=== PATIENT | female | born 1945 | race Caucasian/White ===

== ENCOUNTER 2018-01-06 11:56 | Inpatient (IN) | payer OTHER ==
[~2018-01-06] VITALS: Ht 165.1 cm; Wt 103.0 kg
--- NOTE | 2018-01-06 12:13 | ED GENERAL ADULT ---
History of Present Illness General Chief Complaint: General Adult Stated Complaint: UNABLE TO MOVE LEGS Source: patient, family Exam Limitations: no limitations Vital Signs & Intake/Output Vital Signs & Intake/Output Vital Signs Date Time Temp Pulse Resp B/P B/P Pulse O2 O2 Flow FiO2 Mean Ox Delivery Rate 01/06 1534 97.9 68 20 130/70 94 Nasal 1.0L Cannula 01/06 1330 97.5 59 18 96/54 97 Nasal 1.0L Cannula 01/06 1219 95 Nasal 1.0L Cannula 01/06 1219 95 Nasal 1.0L Cannula 01/06 1216 54 90/52 92 Room Air 01/06 1211 97.5 94 Room Air 01/06 1203 56 18 62/00 Allergies Coded Allergies: Sulfa (Sulfonamide Antibiotics) (UNKNOWN 01/06/18) acetaminophen (From PERCOCET) (UNKNOWN 01/06/18) oxycodone (From PERCOCET) (UNKNOWN 01/06/18) Triage Note: 72 YO FEMALE TO ER BY DAUGHTER FOR EVAL OF SUDDEN ONSET OF NOT BEING ABLE TO BEAR ANY WEIGHT ON BILATERAL LEGS. PT HX OF BACK SURGERY 6 WEEKS AGO. PT UNABLE TO GE TOUT OF CAR IN ER PARKING LOT, PT ASSISTED OUT OF CAR BY MULTIPLE STAFF MEMEBRS. PT C/O NAUSEA. DENIES ANY PAIN. MD TO ER ROOM 12 VIA STRETCHER. BP 62/00 AT THIS TIME, BS 225. PT DIAPHORETIC. Triage Nurses Notes Reviewed? yes Onset: Abrupt Duration: continues in ED Timing: single episode today Severity: severe Associated Symptoms: diaphoresis, weakness HPI: Mrs. Myers is a 72 year old female with a history of lumbar fusion 6 weeks ago came in following an abrupt episode of severe bilateral lower extremity weakness preventing her from ambulation, furthermore she was unable to move her back and bilateral lower extremities. Patient was at a hairdresser's appointment during the onset of symptoms. Patient admits to lightheadedness, nausea, weakness, and diaphoresis. Patient denies pain and vomitng. Patient's daughter endorses that the patient was brought to the ED last week for nausea, vomiting and diarrhea, however these episodes have subsided since. On physical examination, there were absent patellar and achilles reflexes, although patient has had bilateral knee replacement surgery, possibly contributing to the absence of reflexes. There was loss of sensation bilaterally on her feet and decreased sensation on her chins bilaterally. Upon rectal examination rectal tone was noted to be slightly decreased but present. Past History Travel History Traveled to [place] past 21 day No Medical History Any Pertinent Medical History? 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 No Review of Systems Review of Systems Constitutional: Reports: diaphoresis, weakness. EENTM: Reports: no symptoms. Respiratory: Reports: no symptoms. Cardiovascular: Reports: no symptoms. GI: Reports: nausea. Denies: vomiting. Genitourinary: Reports: no symptoms. Musculoskeletal: Denies: back pain. Skin: Reports: no symptoms. Neurological/Psychological: Reports: numbness, weakness. Hematologic/Endocrine: Reports: no symptoms. Immunologic/Allergic: Reports: no symptoms. All Other Systems: Reviewed and Negative Physical Exam Physical Exam General Appearance: well developed/nourished, alert, awake, anxious, severe distress Head: atraumatic, normal appearance Eyes: Bilateral: PERRL, EOMI. Ears, Nose, Throat: normal pharynx, normal ENT inspection Neck: normal inspection, supple Respiratory: normal breath sounds, chest non-tender, no respiratory distress, lungs clear Cardiovascular: normal peripheral pulses, bradycardia Gastrointestinal: normal bowel sounds, soft, non-tender, no organomegaly Rectal: decreased tone, DECREASED TONE BUT NORMAL SENSATION AND TONE IS PRESENT Back: surgical incision intact Neurologic/Psych: awake, motor weakness, motor/sensory deficits, downgoing babinski Reflexes: 0: knee (R), knee (L), ankle (R), ankle (L). Skin: intact Core Measures ACS in differential dx? Yes CVA/TIA Diagnosis: No Sepsis Present: No Sepsis Focused Exam Completed? No Progress Differential Diagnoses I considered the following diagnoses in my evaluation of the patient: [Cauda equina syndrome, postop complication, electrolyte abnormality, AMI, sepsis] Plan of Care: Orders Procedure Date/time Status Heart Healthy Diet 01/06 D Active Pathway - chart 01/06 1548 Active House Staff 01/06 1548 Active Patient Data 01/06 1548 Active Code Status 01/06 1548 Active Patient Data 01/06 1530 Active LACTIC ACID 01/06 1513 Active ED Holding Orders 01/06 1512 Active Admit to inpatient 01/06 1512 Active Vital Signs 01/06 1512 Active Code Status 01/06 1512 Complete FingerStick- Glucose 01/06 1451 Active Intake & Output 01/06 1450 Active Telemetry/Mail Processing Machine Operator 01/06 1230 Active BLOOD CULTURE 01/06 1213 Active TROPONIN LEVEL 01/06 1213 Complete LACTIC ACID 01/06 1213 Complete COMPREHENSIVE METABOLIC PANEL 01/06 1213 Complete CBC WITHOUT DIFFERENTIAL 01/06 1213 Complete EKG 01/06 1159 Active VTE Mechanical Prophylaxis 01/06 UNK Active Telemetry/Mail Processing Machine Operator 01/06 UNK Active Laboratory Tests 01/06/18 1535: Lactic Acid Pending 01/06/18 1210: Anion Gap 9, Estimated GFR > 60, BUN/Creatinine Ratio 12.9, Glucose 195 H, Lactic Acid 2.6 H, Calcium 9.2, Total Bilirubin 0.7, AST 49 H, ALT 53 H, Alkaline Phosphatase 56, Troponin I < 0.01, Total Protein 6.3, Albumin 3.7, Globulin 2.6, Albumin/Globulin Ratio 1.4, CBC w Diff NO MAN DIFF REQ, RBC 3.93 L, MCV 92.0, MCH 30.1, MCHC 32.7 L, RDW 14.7 H, MPV 8.4, Gran % 68.8, Lymphocytes % 19.2 L, Monocytes % 8.1, Eosinophils % 3.5, Basophils % 0.4, Absolute Granulocytes 5.2, Absolute Lymphocytes 1.5, Absolute Monocytes 0.6, Absolute Eosinophils 0.3, Absolute Basophils 0 Microbiology 01/06 1535 BLOOD: Blood Culture - RECD 01/06 1220 BLOOD: Blood Culture - RECD Diagnostic Imaging: Viewed by Me: Radiology Read. Discussed w/RAD: Radiology Read. Initial ED EKG: sINUS BRADYCARDIA Rhythm Strip: sinus bradycardia Comments: No evidence of sepsis. Patient is currently awake alert and oriented, her blood pressure has normalized her heart rate is increased. Patient does not remember getting to the hairdresser's were coming here. Most likely this was a prolonged vasovagal episode. Patient will require admission to the hospital for telemetry monitoring and cardiology consultation. Departure Departure Disposition: STILL A PATIENT Condition: Fair Clinical Impression Primary Impression: Hypotension Secondary Impressions: Bradycardia Referrals: Adrianne Alfaro MD Departure Forms: Customer Survey General Discharge Information Admission Note Spoke With: Natty Lechuga MD Documentation of Exam: Documentation of any treatments & extenuating circumstances including Concerns Regarding Discharge (functional status, medication knowledge or non-compliance, living conditions, etc.) that warrant an admission rather than observation: [PT WAS HYPOTENSIVE AND BREADYCARDIA, SHE IS RESPONDING TO IV FLUIDS, WILL REQUIRE ADMISSION TO TELE, SERIAL ENZYMES, TELE MONITORING, CARDIOLOGY CONSULTATION, PT IS AT HIGH RISK IF SHE WERE TO BE DISCHARGED EARLY.] Critical Care Note Critical Care Note Critical Care Time: mins: (90 MIN)
[2018-01-06 12:36] LABS: ABSOLUTE BASOPHIL COUNT 0 /CUMM (0.0-0.2); ABSOLUTE EOSINOPHIL COUNT 0.3 /CUMM (0.0-0.7); ABSOLUTE GRANULOCYTE CT 5.2 /CUMM (1.4-6.5); ABSOLUTE LYMPH COUNT 1.5 /CUMM (1.2-3.4); ABSOLUTE MONOCYTE COUNT 0.6 /CUMM (0.10-0.60); BASOPHIL % 0.4 % (0.0-2.0); EOSINOPHIL % 3.5 % (0-5); GRANULOCYTE % 68.8 % (42.2-75.2); HEMATOCRIT 36.2 % (37-47); MEAN CORPUSCULAR HGB 30.1 PG (27.0-31.0); MEAN CORPUSCULAR HGB CONC 32.7 G/DL (33.0-37.0); MEAN PLATELET VOLUME 8.4 FL (7.4-10.4); PLATELET COUNT 310 /CUMM (130-400); RBC DISTRIBUTION WIDTH 14.7 % (11.5-14.5); RED BLOOD CELL CT 3.93 /CUMM (4.20-5.40); WHITE BLOOD CELL COUNT 7.6 /CUMM (4.8-10.8)
--- NOTE | 2018-01-06 14:15 | RADIOLOGY REPORT ---
EXAMINATION: XR PORTABLE CHEST CLINICAL INFORMATION: Pneumonia, shortness of breath. COMPARISON: None. TECHNIQUE: Portable frontal view of the chest was obtained. FINDINGS: The lungs are significantly hypoinflated and the patient is lordotic which limits evaluation. No definite focal consolidation, pleural effusion or pneumothorax. Heart size is likely within normal limits but accentuated by technique and positioning. Right shoulder arthroplasty. Anterior cervical fusion hardware. Degenerative changes of the left shoulder and acromioclavicular joint. IMPRESSION: Limited evaluation does not demonstrate an acute pulmonary process.
--- NOTE | 2018-01-06 15:51 | History & Physical ---
General Information and HPI MD Statement: I have seen and personally examined NANCY MCNAIR and documented this H&P. The patient is a 72 year old F who presented with a patient stated chief complaint of [WEAKNESS IN LEGS]. Source of Information: patient, family, old records Allergies/Medications Allergies: Coded Allergies: Sulfa (Sulfonamide Antibiotics) (UNKNOWN 01/06/18) oxycodone (From PERCOCET) (UNKNOWN 01/06/18) Home Med list Dicyclomine HCl 10 MG CAPSULE 1 CAP PO AC ABD CRAMPS (Reported) Gabapentin 100 MG CAPSULE 3 CAP PO TID UNKNOWN (Reported) Irbesartan 150 MG TABLET 1 TAB PO DAILY BP (Reported) Labetalol HCl 200 MG TABLET 1 TAB PO BID BP (Reported) Levothyroxine Sodium 112 MCG TABLET 1 TAB PO DAILY THYROID (Reported) Potassium Chloride 10 MEQ TABLET.ER 1 TAB PO DAILY SUPPLEMENT (Reported) Pravastatin Sodium 40 MG TABLET 1 TAB PO DAILY CHOLESTEROL (Reported) Tizanidine HCl 4 MG TABLET 1 TAB PO BID MUSCLE SPASMS (Reported) Triamterene/Hydrochlorothiazid (Triamterene-Hctz 37.5-25 MG Cp) 37.5 MG-25 MG CAPSULE 1 CAP PO DAILY DIURETIC/BP (Reported) Past History Travel History Traveled to [place] past 21 day No Medical History Neurological: NONE EENT: NONE Cardiovascular: hypertension Respiratory: NONE Gastrointestinal: NONE Hepatic: NONE Renal: NONE Musculoskeletal: NONE Psychiatric: NONE Endocrine: NONE Blood Disorders: NONE Cancer(s): 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 Surgical History Surgical History: spinal fusion Past Family/Social History Psychosocial History ETOH Use: denies use Illicit Drug Use: denies illicit drug use Exam & Diagnostic Data Last 24 Hrs of Vital Signs/I&O Vital Signs Date Time Temp Pulse Resp B/P B/P Pulse O2 O2 Flow FiO2 Mean Ox Delivery Rate 01/06 1534 97.9 68 20 130/70 94 Nasal 1.0L Cannula 01/06 1330 97.5 59 18 96/54 97 Nasal 1.0L Cannula 01/06 1219 95 Nasal 1.0L Cannula 01/06 1219 95 Nasal 1.0L Cannula 01/06 1216 54 90/52 92 Room Air 01/06 1211 97.5 94 Room Air 01/06 1203 56 18 62/00 Intake & Output 01/06 1600 01/06 0800 01/06 0000 Intake Total 1000 Output Total Balance 1000 Intake, IV 1000 Last 24 Hrs of Labs/Valerio: Laboratory Tests 01/06/18 1535: Lactic Acid Pending 01/06/18 1210: Anion Gap 9, Estimated GFR > 60, BUN/Creatinine Ratio 12.9, Glucose 195 H, Lactic Acid 2.6 H, Calcium 9.2, Total Bilirubin 0.7, AST 49 H, ALT 53 H, Alkaline Phosphatase 56, Troponin I < 0.01, Total Protein 6.3, Albumin 3.7, Globulin 2.6, Albumin/Globulin Ratio 1.4, CBC w Diff NO MAN DIFF REQ, RBC 3.93 L, MCV 92.0, MCH 30.1, MCHC 32.7 L, RDW 14.7 H, MPV 8.4, Gran % 68.8, Lymphocytes % 19.2 L, Monocytes % 8.1, Eosinophils % 3.5, Basophils % 0.4, Absolute Granulocytes 5.2, Absolute Lymphocytes 1.5, Absolute Monocytes 0.6, Absolute Eosinophils 0.3, Absolute Basophils 0 Microbiology 01/06 1535 BLOOD: Blood Culture - RECD 01/06 1220 BLOOD: Blood Culture - RECD Core Measures/Misc (02/02) Acute Coronary Syndrome ACS Diagnosis: No Congestive Heart Failure Congestive Heart Failure Diagnosis No Cerebrovascular Accident CVA/TIA Diagnosis: No VTE (View Protocol) VTE Risk Factors Age>40 No Mechanical VTE Prophylaxis d/t N/A MechProphylax Ordered No VTE Pharm Prophylaxis d/t NA PharmProphylax ordered Sepsis (View protocol) Sepsis Present: No If YES complete Sepsis Event Note If YES complete Sepsis Event Note
[2018-01-06] MEDS ORDERED: IRBESARTAN150 M1 PO (16:24)
[2018-01-06] MEDS ORDERED: PRAVASTATIN SOD40 M2 PO (16:24)
[2018-01-06] MEDS ORDERED: TRIAMTERENE-HC1 EAC3 PO (16:24)
[2018-01-06] MEDS ORDERED: LEVOTHYROXINE112 MCG PO (16:25)
[2018-01-06] MEDS ORDERED: POTASSIUM CHLO10 ME4 PO (16:25)
[2018-01-06] MEDS ORDERED: LABETALOL HCL200 M1 PO (16:25)
[2018-01-06] MEDS ORDERED: TIZANIDINE HCL4 M1 PO (16:25)
[2018-01-06] MEDS ORDERED: DICYCLOMINE HCL10 M1 PO (16:26)
[2018-01-06] MEDS ORDERED: GABAPENTIN100 M2 PO (16:27)
--- NOTE | 2018-01-06 17:24 | History & Physical ---
GriffinLouisaazael 01/06/18 7880: General Information and HPI MD Statement: I have seen and personally examined NANCY MYERS and documented this H&P. The patient is a 72 year old F who presented with a patient stated chief complaint of [bilateral LE Weakness]. Source of Information: patient, family Exam Limitations: no limitations History of Present Illness: Ms. Myers is a 72-year-old female with a past medical history of hypertension, hyperlipidemia, hypothyroidism, rheumatoid arthritis, and ankylosing spondylitis who is presenting to the emergency department with complaints of diarrhea, nausea and vomiting since December 17, along with sudden worsening of her lower extremity strength this morning. Patient has been experiencing L. leg pain since undergoing L. hip replacement in [place] around January 2017. After moving to [place] in August 2017 to be closer with her family after her , she went to see Dr. Turcios in [place] for left hip pain, who did an X-ray and MRI and stated "the hip is solid" according to the patient. Ms. Myers then saw Dr. Arzola who determined that the pain was originating from the back, and referred patient to a specialiest. Patient was scheduled for an MRI in October 2017, but she had suffered a fall due to weakness in lower extremities, she went into [facility] which showed a buldging disk, patient underwent lumbar surgery in October 2017, followed by rehab for approx 1 month. Prior to the surgery the patient back pain was 9/10, after it was 4/10. Patient intially began to experience diarrhea, vomiting, nausea, along with passing clots per rectum which started around December 17, shorlty after completing rehab. Patient had went to [facility], where she had a CT scan of the abdomen which showed possible colities, her stool samples/cultures were neagtive, and patient was given 3 days of ABx. Patient denies sick contact, or other sick patients at the rehab, denies ingesting uncooked seafood or chicken before the onset of diarrhea, only pet she has is a dog. Denies recent travel and does not recall tick bites. Patient states her diarrhea has not resolved, is having abour 7-8 episodes of watery BM per day which contain mucus, accompanied by lower abdominal pain, she has been vomiting approx 3-4 times per day. The diarrhea nor the vomitus contain blood. Patient also endorses decreased appetite, and weakness in her legs bilaterally which brought her into the hospital. After drinking some pedialyte yesterday, patient was feeling better. This morning patient was walking down the stairs and got into her daughters car as they were going to a hair salon. Patient states she remembers being at the gas station across the street from the salon, and then remembers having difficulty trying to get out of the car. She does not remember coming to the hospital, and daughter required helped getting patient out of the car, as the patient couldnt feel her legs. In the ED, patient became dizzy when asking the patient to sit up right while auscultating her lungs. Vital signs-temperature 97.5, pulse 56, respiratory rate 18, blood pressure 62/ 00 at the time of admission which increased to 130/70, SPO2 94% on room air. Blood workup-hemoglobin 11.8, hematocrit 36.2, platelet count 310, granulocyte 68.8, monocyte 8.1, serum sodium 138, potassium 4.0, chloride 101, carbon DEXA 20, anion gap 9, BUN 9, creatinine 0.7, glucose 195, lactic acid 2.6, calcium 9.2, magnesium 1.5, AST/ALT 49/53, troponin less than 0.01, albumin 2.7. Allergies/Medications Allergies: Coded Allergies: Sulfa (Sulfonamide Antibiotics) (UNKNOWN 01/06/18) oxycodone (From PERCOCET) (UNKNOWN 01/06/18) Home Med list Dicyclomine HCl 10 MG CAPSULE 1 CAP PO AC ABD CRAMPS (Reported) Gabapentin 100 MG CAPSULE 3 CAP PO TID UNKNOWN (Reported) Irbesartan 150 MG TABLET 1 TAB PO DAILY BP (Reported) Labetalol HCl 200 MG TABLET 1 TAB PO BID BP (Reported) Levothyroxine Sodium 112 MCG TABLET 1 TAB PO DAILY THYROID (Reported) Potassium Chloride 10 MEQ TABLET.ER 1 TAB PO DAILY SUPPLEMENT (Reported) Pravastatin Sodium 40 MG TABLET 1 TAB PO DAILY CHOLESTEROL (Reported) Tizanidine HCl 4 MG TABLET 1 TAB PO BID MUSCLE SPASMS (Reported) Triamterene/Hydrochlorothiazid (Triamterene-Hctz 37.5-25 MG Cp) 37.5 MG-25 MG CAPSULE 1 CAP PO DAILY DIURETIC/BP (Reported) Past History Travel History Traveled to [place] past 21 day No Medical History Neurological: NONE EENT: NONE Cardiovascular: hypertension, hyperlipidemia Respiratory: NONE Gastrointestinal: NONE Hepatic: NONE Renal: NONE Musculoskeletal: rheumatoid arthritis Psychiatric: NONE Endocrine: hypothyroidism Blood Disorders: NONE Cancer(s): NONE BOTTOM BUFFER/Reproductive: NONE Other Medical Hx: Ankylosing Spondylitis Surgical History Surgical History: spinal fusion Past Family/Social History Psychosocial History Where do you live? Home Who Do You Live With? son and [id number] Services at Home: None Smoking Status: Former Smoker (approx 50 years ago) ETOH Use: denies use Illicit Drug Use: denies illicit drug use Living Will? yes Power of Lens Maker/HCP? yes (Daughter-Letha Russell) Name of POA/HCP: Letha Russell Review of Systems Review of Systems Constitutional: Reports: weakness. Denies: chills, diaphoresis, fever. EENTM: Denies: blurred vision, double vision, visual changes, hearing changes, throat pain. Cardiovascular: Denies: chest pain, palpitations, syncope. Respiratory: Denies: cough, short of breath. GI: Reports: abdominal pain, diarrhea. Genitourinary: Denies: discharge, dysuria, frequency. Musculoskeletal: Reports: back pain. Neurological/Psychological: Reports: numbness, tingling. Denies: anxiety, confusion, depressed. Exam & Diagnostic Data Last 24 Hrs of Vital Signs/I&O Vital Signs Date Time Temp Pulse Resp B/P B/P Pulse O2 O2 Flow FiO2 Mean Ox Delivery Rate 01/06 1826 98.2 66 18 130/72 97 Nasal Cannula 01/06 1715 Nasal 1.0L Cannula 01/06 1534 97.9 68 20 130/70 94 Nasal 1.0L Cannula 01/06 1330 97.5 59 18 96/54 97 Nasal 1.0L Cannula 01/06 1219 95 Nasal 1.0L Cannula 01/06 1219 95 Nasal 1.0L Cannula 01/06 1216 54 90/52 92 Room Air 01/06 1211 97.5 94 Room Air 01/06 1203 56 18 62/00 Intake & Output 01/06 1600 01/06 0800 01/06 0000 Intake Total 1000 Output Total Balance 1000 Intake, IV 1000 Physical Exam General Appearance Alert, Oriented X3, Cooperative Skin No Rashes HEENT Atraumatic, PERRLA, EOMI Neck Supple, No LAD Cardiovascular Regular Rate, Normal S1, Normal S2 Lungs Clear to Auscultation, Normal Air Movement Abdomen Normal Bowel Sounds, Soft, generalized tenderness to palpation Neurological Normal Speech, Strength at 5/5 X4 Ext, Sensation Intact, Cranial Nerves 3-12 NL Extremities No Cyanosis, No Edema, Normal Pulses Assessment/Plan Assessment: Ms. Myers is a 72-year-old female with a past medical history of hypertension, hyperlipidemia, hypothyroidism, rheumatoid arthritis, and ankylosing spondylitis who is presenting to the emergency department with complaints of diarrhea, nausea and vomiting since December 17, along with sudden worsening of her lower extremity strength this morning. Admit patient to telemetry. Problem List: 1. Hypotensive Shock 2. Diarrhea 3. LE weakness 4. History of Ankylosing Spondylitis #Hypotensive Shock: etiology- dehydration 2/2 diarrhea vs colitis vs medication induced. Patient has been expericing diarrhea for 2 weeks with decreased oral intake. She has also been on sulfasalazine which can cause diarrhea, patient was previously on Embril approx 5 years ago which was stopped due to a bone infection. Sulfasalazine is known to induce diarrhea. Patient was recently treated with ABx for colitis. Patient was hypotensive on admission SBP was 62/00 , which increased to 130/72 after 1.5L of NS in ED. Lactic acid was elevated on admission at 2.6, was trending down. Patient had inappropriate cardiac response to severe hypotension -IVF recussitation with NS @ 125mL/hr - monitor orthostatic pressure daily -hold anti-HTN medications -cardiology consult #Diarrhea: etiology unknown, patient had a recent episode of colitis which was treated with Abx, patient has been on sulfasalazine for Anykylosing spondylitis. Stool samples were negative for infectious process at [facility] -obtain records from [facility] -Stooll for Ova and parasites -C.diff - CT scan of abdomen and Pelvis -hold Sulfasalazine #Bilateral LE Weakness: Patient has history of back surgery for disk herniation. Patient stated that her weakness symptoms did improve after drinking pedialyte, thus possible etiologies are: hypotension vs electrolyte imbalance vs spinal -monitor electrolytes -increase PO intake, rehydrate patient - if patient LE extremity weakness does not improve, consider MRI of spine -PT consult #Ankylosing Spondylitis: Patient was started on Sulfasalazine approx 5 years ago and having a bone infection at the site of Embril Injection -hold sulfasalazine as medication is known to induce diarrhea -tylenol for pain Diet: Heart Healthy DVT PPx: Heparin and ALPS Code Status: Full code As Ranked By This Provider Problem List: 1. Hypotension Core Measures/Misc (02/02) Acute Coronary Syndrome ACS Diagnosis: No Congestive Heart Failure Congestive Heart Failure Diagnosis No Cerebrovascular Accident CVA/TIA Diagnosis: No VTE (View Protocol) VTE Risk Factors Age>40 No Mechanical VTE Prophylaxis d/t N/A MechProphylax Ordered No VTE Pharm Prophylaxis d/t NA PharmProphylax ordered Sepsis (View protocol) Sepsis Present: No If YES complete Sepsis Event Note If YES complete Sepsis Event Note Nancy Steele MD 01/06/18 1729: Core Measures/Misc (02/02) Acute Coronary Syndrome ACS Diagnosis: No Congestive Heart Failure Congestive Heart Failure Diagnosis No Cerebrovascular Accident CVA/TIA Diagnosis: No VTE (View Protocol) VTE Risk Factors Age>40 No Mechanical VTE Prophylaxis d/t N/A MechProphylax Ordered No VTE Pharm Prophylaxis d/t NA PharmProphylax ordered Sepsis (View protocol) Sepsis Present: No If YES complete Sepsis Event Note If YES complete Sepsis Event Note Resident Review Statement Resident Statement: examined this patient, discussed with human resource intern, agreed with human resource intern Other Findings: Patient is a 72-year-old female presented primarily with a complaint of generalized weakness and dizziness secondary to diarrhea. Past medical history-hypertension, hyperlipidemia, hypothyroidism, morbid obesity, history of recent laminectomy October 2017. Patient was relatively all right around an year ago. She had left hip replacement in January 2017 which was followed by continuous pain in the left leg. She was seen by neurologist Dr. Causey who advised for MRI of the back in October 2017 which showed prolapse vertebral disc. She had laminectomy on October. She went for rehabilitation for 10-15 days and discharged from there November 2017. Afterwards she started having continuous diarrhea. She defined as a 8-10 bowel movements in a day watery nature but denies for any blood in it. She was seen for it at the [facility] and admitted for around 3-5 days from December 17. She was diagnosed as a colitis and treated by antibiotic. Blood workup and stool workup was normal at that time. She was advised to have colonoscopy which is scheduled for January 20. She was feeling dizziness and generalized weakness since last 3-5 days. Today when she went out to have a haircut with the daughter, while in the car she felt blurring of vision, blackening in front of eyes with some weakness in the legs. She was not able to get out of the car. They brought her here for further evaluation and management. Of note she was also complaining of nausea and vomiting. She is able to tolerate the liquids but not the solids. She was also having history of ankylosing spondylitis for which he was taking sulfasalazine. She denies any recent change and medication. For ankylosing spondylitis she is following Dr. Perkins. She was given Enbrel 5 years ago but she was not able to tolerate. Personal history-she lives with her daughter, and able to do all her household activity. Denies for any smoking, alcohol, illicit drug abuse. Family history-mother had liver cancer and lung cancer. Vital signs-temperature 97.5, pulse 56, respiratory rate 18, blood pressure 62/ 00 at the time of admission which increased to 130/70, SPO2 94% on room air. Blood workup-hemoglobin 11.8, hematocrit 36.2, platelet count 310, granulocyte 68.8, monocyte 8.1, serum sodium 138, potassium 4.0, chloride 101, carbon DEXA 20, anion gap 9, BUN 9, creatinine 0.7, glucose 195, lactic acid 2.6, calcium 9.2, magnesium 1.5, AST/ALT 49/53, troponin less than 0.01, albumin 2.7. Assessment and plan - Hypotensive shock secondary to diarrhea and dehydration and lactic acidosis - possibly colitis due to infection or inflammation - Patient had a history of diarrhea since last 2 weeks and was treated for the colitis. She was given antibiotic for it. She was also on sulfasalazine but can also cause nausea vomiting diarrhea. We will hold it for a while. * IV fluids normal saline 125 cc/h. * Stool for ova and parasite, C. difficile * Urine analysis * We will follow the ua, blood cultures and urine culture * Orthostatic daily * Increase oral intake * Inj pantoprazole 40 mg IV twice daily * We will follow CT scan of abdomen and pelvis with oral and IV contrast * We will hold all antihypertensives * We will get the records from the [facility] for her admission and treatment. Relative bradycardia despite of severe hypotension - Patient was severely hypertensive and still having heart rate of 56. EKG was showing normal sinus rhythm. It can be typhoid, Brucella are due to the labetalol she was on. * We will obtain cardiology consult * We will do serial troponins and EKG to rule out any secondary demand ischemia * Echocardiogram as per telescope maintenance. History of ankylosing spondylitis- Patient was already on sulfasalazine. She had newer immunomodulators Enbrel, around 5 years ago. * We will hold sulfasalazine for a while. * If needed we can give her Tylenol as needed for the pain. CODE STATUS-full code Diet-regular diet DVT prophylaxis-ALPs/heparin Rodo Shepherd MD 01/06/18 2136: Core Measures/Misc (02/02) Sepsis (View protocol) If YES complete Sepsis Event Note If YES complete Sepsis Event Note Attending MD Review Statement Attending Statement Attending MD Statement: examined this patient, discuss w/resident/PA/FIELD COORDINATOR, agreed w/resident/PA/FIELD COORDINATOR, reviewed EMR data (avail), discussed with nursing, amended to note Attending Assessment/Plan: Patient seen and examined. I have reviewed and agree with the residents documentation. Her weakness appears to be secondary to severe volume depletion that resulted in significant hypotension. She has improved with hydration. WIll further workup her diarrhea with stool studies, CT abd/pelvs and follow up results from her prior hospitalization. She is bradycardic despitite her hypotension. Likely due to her labetalol. Will monitor overnight on telemetry and obtain an echocardiogram.
[2018-01-06 18:26] VITALS: BP 130/72
[2018-01-07 06:42] VITALS: BP 180/90
--- NOTE | 2018-01-07 07:59 | PN- Housestaff ---
GriffinSrinivasalevi 01/07/18 0759: Subjective Follow-up For: Diarrhea Subjective: Overnight patient was in normal sinus rhythm heart rate ranging between 80-94. No acute events overnight, patient states she had 10 episodes of diarrhea between 6-10PM last night, has not had episode of diarrhea since 12 AM this morning. Patient states lower extremity weakness is improving was able to transfer herself with some assistance from bed to chair this morning. Review of Systems Constitutional: Denies: chills, diaphoresis, fever. Cardiovascular: Denies: chest pain, palpitations. Respiratory: Denies: cough, short of breath. Objective Last 24 Hrs of Vital Signs/I&O Vital Signs Date Time Temp Pulse Resp B/P B/P Pulse O2 O2 Flow FiO2 Mean Ox Delivery Rate 01/07 0642 98.6 83 18 180/90 96 Nasal Cannula 01/07 0000 Nasal 1.0L Cannula 01/06 1826 98.2 66 18 130/72 97 Nasal Cannula 01/06 1715 Nasal 1.0L Cannula 01/06 1534 97.9 68 20 130/70 94 Nasal 1.0L Cannula 01/06 1330 97.5 59 18 96/54 97 Nasal 1.0L Cannula 01/06 1219 95 Nasal 1.0L Cannula 01/06 1219 95 Nasal 1.0L Cannula 01/06 1216 54 90/52 92 Room Air 01/06 1211 97.5 94 Room Air 01/06 1203 56 18 62/00 Intake & Output 01/07 1600 01/07 0800 01/07 0000 Intake Total 1420 950 Output Total 1300 Balance 120 950 Intake, IV 1200 450 Intake, Oral 220 500 Number 2 5 Bowel Movements Output, Urine 1300 Patient 218 lb Weight Weight Reported by Patient Measurement Method Physical Exam General Appearance: Alert, Oriented X3, Cooperative Skin: No Rashes HEENT: Atraumatic, PERRLA, EOMI Cardiovascular: Regular Rate, Normal S1, Normal S2, SYSTOLIC 2/6 MURMUR Lungs: Clear to Auscultation, Normal Air Movement Neurological: Strength at 5/5 X4 Ext, Normal Tone, Sensation Intact Extremities: No Cyanosis, No Edema, Normal Pulses Assessment/Plan Assessment: Ms. Myers is a 72-year-old female with a past medical history of hypertension, hyperlipidemia, hypothyroidism, rheumatoid arthritis, and ankylosing spondylitis who is presenting to the emergency department with complaints of diarrhea, nausea and vomiting since December 17, along with sudden worsening of her lower extremity strength this morning. Admit patient to telemetry. Problem List: 1. Hypotensive Shock- resolved 2. Diarrhea 3. LE weakness 4. History of Ankylosing Spondylitis 5. History of hypertension #Hypotensive Shock: etiology- dehydration 2/2 diarrhea vs colitis vs medication induced. Patient has been expericing diarrhea for 2 weeks with decreased oral intake. She has also been on sulfasalazine which can cause diarrhea, patient was previously on Embril approx 5 years ago which was stopped due to a bone infection. Sulfasalazine is known to induce diarrhea. Patient was recently treated with ABx for colitis. Patient was hypotensive on admission SBP was 62/00 , which increased to 130/72 after 1.5L of NS in ED. Lactic acid was elevated on admission at 2.6, was trending down. Patient had inappropriate cardiac response to severe hypotension -IVF recussitation with NS @ 125mL/hr - monitor orthostatic pressure daily -hold anti-HTN medications -cardiology consult #Diarrhea: etiology unknown, patient had a recent episode of colitis which was treated with Abx, patient has been on sulfasalazine for Anykylosing spondylitis. Stool samples were negative for infectious process at [facility]. CT of the abdomen and pelvis does not show any evidence of acute abnormality within the abdomen or pelvis, no focal wall thickening or pericolonic inflammatory changes to suggest colitis. -obtain records from [facility] -Follow-up stool for Ova and parasites and stool culture -hold Sulfasalazine #Bilateral LE Weakness: Patient has history of back surgery for disk herniation. Patient stated that her weakness symptoms did improve after drinking pedialyte, thus possible etiologies are: hypotension vs electrolyte imbalance vs spinal -monitor electrolytes -increase PO intake, rehydrate patient - if patient LE extremity weakness does not improve, consider MRI of spine -PT consult #Ankylosing Spondylitis: Patient was started on Sulfasalazine approx 5 years ago and having a bone infection at the site of Embril Injection -hold sulfasalazine as medication is known to induce diarrhea -tylenol for pain #History of hypertension: Initially patient was hypotensive on presentation secondary to dehydration, patient has received -Start labetalol 200 mg, why patient for bradycardiapatient had an appropriate heart rate response to dehydration, response could have been inhibited by medication. -Start losartan 50 mg #History of hypothyroidism: Repeat TSH is 4.170, TSH on admit was 5.9 Diet: Heart Healthy DVT PPx: Heparin and ALPS Code Status: Full code Problem List: 1. Hypotension Pain Ratin Pain Location: n/a Pain Goal: Remain pain free Pain Plan: tramadol Tomorrow's Labs & Rationales: tony Shepherd MD,[place] 01/07/18 1213: Attending MD Review Statement Attending Statement Attending MD Statement: examined this patient, discuss w/resident/PA/MERCHANDISING STOCK ASSOCIATE, agreed w/resident/PA/MERCHANDISING STOCK ASSOCIATE, reviewed EMR data (avail), discussed with nursing, discussed with case mgmt, amended to note Attending Assessment/Plan: Patient seen and examined. Resting comfortably not in any acute distress. She reports feeling much better this morning. She had about 9 bowel movements yesterday but so far has had only 2 bowel movements. Denies any abdominal cramping. Denies any nausea vomiting. On examination abdomen is nondistended soft and nontender. CT scan done yesterday shows no evidence of acute abnormality. No evidence suggestive of colitis. Liquid stool seen in the colon. Blood pressure has improved and is actually on the higher side today. She is also no longer bradycardic. With heart rate improving into the 80s. Clostridium difficile testing is negative. Recommendations: -Resume oral antihypertensive medications. -Discontinue IV fluids. Patient has been resumed on regular diet. -Begin patient on Imodium. Follow-up for a stool workup. -If blood pressure remained stable and diarrhea continues to improve, patient may be discharged home tomorrow and follow-up with her buttonhole tacker as an outpatient. -Discontinue telemetry monitoring. Follow-up echocardiogram
--- NOTE | 2018-01-07 08:06 | PN- Student ---
Subjective Subjective: 72 y/o female with a PMH of hypertension, hyperlipidemia, hypothyroidism, rheumatoid arthritis, and ankylosing spondylitis who is presenting to the emergency department with complaints of diarrhea, nausea and vomiting since December 17, along with sudden worsening of her lower extremity strength this morning. Overnight, the telemonitor reported the patient to be in NSR in a range from 80- 94bpm. No acute events noted. Patient was interviewed and examined at bedside this morning. The patient was A& O x3 and appropriately responsive. The patient states that she only slept for three hours which is less than normal for her and that she has pain in her right CVA that she states began once she came to the hospital. The patient also states that she still feels dizziness, especially when she has bowel movements and that her last episode of diarrhea was 11pm last night. Current Medications Sig/Kaitlyn Start time Last Medication Dose Route Stop Time Status Admin Acetaminophen 0 .STK-MED ONE 01/07 0244 DC PO Acetaminophen 650 MG ONCE ONE 01/07 0230 DC 01/07 PO 01/07 0231 0248 Acetaminophen 650 MG ONCE ONE 01/06 2030 DC 01/06 PO 01/06 Acetaminophen 0 .STK-MED ONE 01/06 2030 DC PO Heparin Sodium 5,000 UNIT Q8 01/06 2256 AC 01/07 (Porcine) SC 0535 Levothyroxine Sodium 0.112 MG DAILY AC 01/07 0700 AC 01/07 PO 0535 Magnesium Sulfate 1 GM ONCE ONE 01/06 1830 DC 01/06 Dextrose/Water 100 ML IV 01/06 2229 2120 Sodium Chloride 1,000 ML Q8H 01/06 2145 AC 01/07 IV 0006 Sodium Chloride 1,000 ML Q6H 01/06 1745 DC 01/06 IV 1824 Sodium Chloride 1,000 ML BOLUS ONE 01/06 1215 DC 01/06 IV 01/06 1314 1210 Sodium Chloride 1,000 ML BOLUS ONE 01/06 1215 DC IV 01/06 1314 Sodium Chloride 1,000 ML BOLUS ONE 01/06 1215 DC 01/06 IV 01/06 1314 1330 Allergies: Sulfa drugs Oxycodone Objective Objective: Vital Signs Date Time Temp Pulse Resp B/P B/P Pulse O2 O2 Flow FiO2 Mean Ox Delivery Rate 01/07 0642 98.6 83 18 180/90 96 Nasal Cannula 01/07 0000 Nasal 1.0L Cannula 01/06 1826 98.2 66 18 130/72 97 Nasal Cannula 01/06 1715 Nasal 1.0L Cannula 01/06 1534 97.9 68 20 130/70 94 Nasal 1.0L Cannula 01/06 1330 97.5 59 18 96/54 97 Nasal 1.0L Cannula 01/06 1219 95 Nasal 1.0L Cannula 01/06 1219 95 Nasal 1.0L Cannula 01/06 1216 54 90/52 92 Room Air 01/06 1211 97.5 94 Room Air 01/06 1203 56 18 62/00 Intake & Output 01/07 0800 01/07 0000 01/06 1600 Intake Total 1556 813 3877 Output Total 1300 Balance 191 482 3955 Intake, IV 3689 924 6179 Intake, Oral 220 500 Number 2 5 Bowel Movements Output, Urine 1300 Patient 218 lb Weight Weight Reported by Patient Measurement Method Physical Exam General Appearance: Well developed/nourished, NAD Head: Atraumatic Neck: Supple; No lymphadenopathy noted Respiratory: normal breath sounds bilaterally, chest non-tender, no respiratory distress Cardiovascular: regular rate/rhythm; no murmurs, rubs, or gallops noted Gastrointestinal: No visible distension, soft, Tender at R CVA Extremities: ROM in tact Neurologic/Psych: Alert and Oriented x 3 Results Results: Laboratory Tests 01/07/18 0615: Anion Gap 6, Estimated GFR > 60, BUN/Creatinine Ratio 10.0, Magnesium 1.8, TSH 4.170, CBC w Diff NO MAN DIFF REQ, RBC 3.42 L, MCV 92.8, MCH 30.4, MCHC 32.8 L , RDW 14.9 H, MPV 8.8, Gran % 42.2, Lymphocytes % 38.6, Monocytes % 14.7 H, Eosinophils % 3.7, Basophils % 0.8, Absolute Granulocytes 2.6, Absolute Lymphocytes 2.4, Absolute Monocytes 0.9 H, Absolute Eosinophils 0.2, Absolute Basophils 0 01/06/18 2355: Troponin I < 0.01 01/06/18 1933: Urine Color YEL, Urine Clarity CLEAR, Urine pH 6.0, Ur Specific [place] 1.015, Urine Protein NEG, Urine Ketones NEG, Urine Nitrite NEG, Urine Bilirubin NEG, Urine Urobilinogen 0.2, Ur Leukocyte Esterase MOD H, Ur Microscopic SEDIMENT EXAMINED, Urine RBC 1-3, Urine WBC 10-15 H, Ur Epithelial Cells MOD H, Urine Bacteria MOD H, Urine Hemoglobin NEG, Urine Glucose NEG 01/06/18 1915: Troponin I < 0.01 01/06/18 1535: Lactic Acid 2.4 H 01/06/18 1210: Anion Gap 9, Estimated GFR > 60, BUN/Creatinine Ratio 12.9, Glucose 195 H, Lactic Acid 2.6 H, Calcium 9.2, Magnesium 1.5 L, Total Bilirubin 0.7, AST 49 H, ALT 53 H, Alkaline Phosphatase 56, Troponin I < 0.01, Total Protein 6.3, Albumin 3.7, Globulin 2.6, Albumin/Globulin Ratio 1.4, Free T4 1.40, Total T3 1.19, TSH &T3 &Free T4 Intrp 5.920 H, CBC w Diff NO MAN DIFF REQ, RBC 3.93 L, MCV 92.0, MCH 30.1, MCHC 32.7 L, RDW 14.7 H, MPV 8.4, Gran % 68.8, Lymphocytes % 19.2 L, Monocytes % 8.1, Eosinophils % 3.5, Basophils % 0.4, Absolute Granulocytes 5.2, Absolute Lymphocytes 1.5, Absolute Monocytes 0.6, Absolute Eosinophils 0.3, Absolute Basophils 0 Microbiology 01/06 2130 STOOL: Cryptosporidium Antigen - RECD 01/06 2130 STOOL: Giardia Antigen (JAMES) - RECD 01/06 2130 STOOL: Clostridium difficile Toxin A & B - RES 01/06 2130 STOOL: Vibrio Culture - RES 01/06 2130 STOOL: Stool Culture - RES 01/06 173 STOOL: Vibrio Culture - CAN Cancelled: COMBINED 01/06 1535 BLOOD: Blood Culture - RECD 01/06 1220 BLOOD: Blood Culture - RECD Assessment/Plan Assessment: 72 y/o female with a PMH of hypertension, hyperlipidemia, hypothyroidism, rheumatoid arthritis, and ankylosing spondylitis who is presenting to the emergency department with complaints of diarrhea, nausea and vomiting since December 17. Plan: Hypotensive Shock: IVF recussitation with 1/2 NS Monitor orthostatic pressure daily Cardiology consult Diarrhea: Monitor electrolytes Increase PO intake, rehydrate patient Potassium Chloride 40mEq PO Q8 x2 days Consider MRI of spine PT consult Ankylosing Spondylitis: Hold sulfasalazine as medication is known to induce diarrhea Tylenol for pain Chronic Medical Conditions: Continue home medications Re-check TSH levels and consider changing Synthroid accordingly Diet: Heart Healthy DVT PPx: Heparin and ALPS Code Status: Full code
[2018-01-07 08:17] LABS: ABSOLUTE BASOPHIL COUNT 0 /CUMM (0.0-0.2); ABSOLUTE EOSINOPHIL COUNT 0.2 /CUMM (0.0-0.7); ABSOLUTE GRANULOCYTE CT 2.6 /CUMM (1.4-6.5); ABSOLUTE LYMPH COUNT 2.4 /CUMM (1.2-3.4); ABSOLUTE MONOCYTE COUNT 0.9 /CUMM (0.10-0.60); BASOPHIL % 0.8 % (0.0-2.0); EOSINOPHIL % 3.7 % (0-5); GRANULOCYTE % 42.2 % (42.2-75.2); HEMATOCRIT 31.8 % (37-47); MEAN CORPUSCULAR HGB 30.4 PG (27.0-31.0); MEAN CORPUSCULAR HGB CONC 32.8 G/DL (33.0-37.0); MEAN CORPUSCULAR VOLUME 92.8 FL (81.0-99.0); MEAN PLATELET VOLUME 8.8 FL (7.4-10.4); PLATELET COUNT 269 /CUMM (130-400); RBC DISTRIBUTION WIDTH 14.9 % (11.5-14.5); RED BLOOD CELL CT 3.42 /CUMM (4.20-5.40); WHITE BLOOD CELL COUNT 6.2 /CUMM (4.8-10.8)
--- NOTE | 2018-01-07 09:14 | CT SCAN REPORT ---
EXAMINATION: CT ABDOMEN AND PELVIS WITH CONTRAST CLINICAL INFORMATION: Abdominal pain. COMPARISON: None TECHNIQUE: Multidetector volumetric imaging was performed of the abdomen and pelvis following IV administration of 95 mL of Optiray 320 intravenous contrast. Sagittal and coronal reformatted images were obtained on the technologist's workstation. DLP: 1254.80 mGy-cm FINDINGS: LUNG BASES: The visualized lung bases are unremarkable. LIVER, GALLBLADDER, AND BILIARY TREE: The liver is normal in size, shape, and attenuation. No focal hepatic lesion or biliary ductal dilatation is present. Cholecystectomy. PANCREAS: Unremarkable. SPLEEN: Few scattered calcifications within the spleen, likely related to old granulomatous disease and of doubtful clinical significance. ADRENAL GLANDS: Unremarkable. KIDNEYS AND URETERS: The kidneys are normal in size, shape, and attenuation. No hydronephrosis, hydroureter, or calculi seen. No perinephric stranding. Tiny cortical hypodensity within the right kidney measuring approximately 0.5 cm is too small to characterize but statistically most likely represents a small cyst. BLADDER: Limited evaluation due to streak artifact from the left hip arthroplasty. No focal wall abnormalities detected. GASTROINTESTINAL TRACT: Diverticulosis without CT evidence of diverticulitis. Liquid stool within the colon suggestive of diarrhea. The appendix is not seen. There are no pericecal inflammatory changes to suggest acute appendicitis. No evidence of bowel obstruction. ABDOMINAL WALL: No significant hernia is appreciated. LYMPH NODES: No lymphadenopathy within the abdomen or pelvis by CT criteria. VASCULAR: Atherosclerosis abdominal aorta without evidence of aneurysm. PELVIC VISCERA: Hysterectomy. OSSEOUS STRUCTURES: Total left hip arthroplasty. Posterior spinal fusion L2-L3. Intervertebral disc spaces L2-L3, L3-L4, L4-L5, L5-S1. Abandoned screw within the S1 body. Multilevel degenerative changes of the spine. No acute or suspicious osseous abnormality. IMPRESSION: 1. No evidence of acute abnormality within the abdomen or pelvis. 2. Liquid contents within the colon suggestive of diarrhea. No focal wall thickening or pericolonic inflammatory changes to suggest colitis. 3. Other nonacute findings as above.
[2018-01-07 14:24] VITALS: BP 174/80
--- NOTE | 2018-01-07 19:09 | Cons- Cardiology ---
General Information and HPI Consulting Request Date of Consult: 01/07/18 Requested By: Joao LONGORIA,Rodo History of Present Illness: 72 year old patient with history of ankylosing spondilitis, hypertension, dyslipidemia, admitted with history of diarrhea and poor intake over a week. Ms Louis was in hypotensive shock at admission secondary to volume contraction/ diarrhea/poor intake. She was given IV fluids and her blood pressure rapidly improved. She was also noted to be in sinus bradycardia upon admission, with HR inappropriately in the 50s. Patient was lightheaded and mostly complained of lower extremity weakness, which was symmetrical. Since admission, her betablockers have been discontinued and her HR has been normal, 80-90 bpm in sinus rhythm over the past 24 hours. She is still presenting frequent loose stools, but is feeling better. She denies syncope, denies, chest pains, denies palpitations, denies orthopnea. Allergies/Medications Allergies: Coded Allergies: Sulfa (Sulfonamide Antibiotics) (UNKNOWN 01/06/18) oxycodone (From PERCOCET) (UNKNOWN 01/06/18) Home Med List: Dicyclomine HCl 10 MG CAPSULE 1 CAP PO AC ABD CRAMPS (Reported) Gabapentin 100 MG CAPSULE 3 CAP PO TID UNKNOWN (Reported) Irbesartan 150 MG TABLET 1 TAB PO DAILY BP (Reported) Labetalol HCl 200 MG TABLET 1 TAB PO BID BP (Reported) Levothyroxine Sodium 112 MCG TABLET 1 TAB PO DAILY THYROID (Reported) Potassium Chloride 10 MEQ TABLET.ER 1 TAB PO DAILY SUPPLEMENT (Reported) Pravastatin Sodium 40 MG TABLET 1 TAB PO DAILY CHOLESTEROL (Reported) Tizanidine HCl 4 MG TABLET 1 TAB PO BID MUSCLE SPASMS (Reported) Triamterene/Hydrochlorothiazid (Triamterene-Hctz 37.5-25 MG Cp) 37.5 MG-25 MG CAPSULE 1 CAP PO DAILY DIURETIC/BP (Reported) Current Medications: Current Medications Sig/Kaitlyn Start time Last Medication Dose Route Stop Time Status Admin Acetaminophen 0 .STK-MED ONE 01/074 DC PO Acetaminophen 650 MG ONCE ONE 01/07 023 DC 01/07 PO 01/07 Acetaminophen 650 MG ONCE ONE 01/06 2030 DC 01/06 PO 01/06 Acetaminophen 0 .STK-MED ONE 01/06 2030 DC PO Heparin Sodium 5,000 UNIT Q8 01/06 2256 AC 01/07 (Porcine) SC 1358 Labetalol HCl 200 MG BID 01/07 0900 AC 01/07 PO 0959 Levothyroxine Sodium 0.112 MG DAILY AC 01/07 0700 AC 01/07 PO 0535 Loperamide HCl 2 MG Q6P PRN 01/07 1415 AC PO Losartan Potassium 50 MG DAILY 01/07 0900 AC 01/07 PO 0959 Magnesium Oxide 400 MG BID 01/07 0900 AC 01/07 PO 1001 Magnesium Sulfate 1 GM ONCE ONE 01/06 1830 DC 01/06 Dextrose/Water 100 ML IV 01/06 2229 2120 Potassium Chloride 40 MEQ BID 01/07 0900 AC 01/07 PO 01/07 2101 0959 Sodium Chloride 1,000 ML Q8H 01/06 2145 DC 01/07 IV 0006 Sodium Chloride 1,000 ML Q6H 01/06 1745 DC 01/06 IV 1824 Tramadol HCl 50 MG Q4 PRN 01/07 1159 AC PO Tramadol HCl 50 MG Q6 PRN 01/07 1115 DC 01/07 PO 1122 Review of Systems Review of Systems: see HPI Past History Travel History Traveled to [place] past 21 day No Medical History Blood Transfusion Hx: No Neurological: NONE EENT: NONE Cardiovascular: hypertension, hyperlipidemia Respiratory: NONE Gastrointestinal: NONE Hepatic: NONE Renal: NONE Musculoskeletal: rheumatoid arthritis Psychiatric: NONE Endocrine: hypothyroidism Blood Disorders: NONE Cancer(s): NONE LINEN FOLDER/Reproductive: NONE Other Medical Hx: Ankylosing Spondylitis Surgical History Surgical History: spinal fusion, BILAD KNEES LEFT HIP RIGHT SHOULDER Psychosocial History Where Do You Live? Home Who Do You Live With? son and [id number] Services at Home: None Smoking Status: Former Smoker (approx 50 years ago) ETOH Use: denies use Illicit Drug Use: denies illicit drug use Living Will? yes Power of Analytical Data Miner/HCP? yes (Daughter-Letha Russell) Name of POA/HCP: Letha Russell Exam & Diagnostic Data Vital Signs and I&O Vital Signs Date Time Temp Pulse Resp B/P B/P Pulse O2 O2 Flow FiO2 Mean Ox Delivery Rate 01/07 1424 98.6 73 18 174/80 96 01/07 0959 83 180/90 01/07 0959 83 180/90 01/07 0642 98.6 83 18 180/90 96 Nasal Cannula 01/07 0000 Nasal 1.0L Cannula Intake & Output 01/07 1600 01/07 0800 01/07 0000 01/06 1600 01/06 0800 01/06 0000 Intake Total 1000 3926 606 5834 Output Total 600 1300 Balance 400 126 411 3653 Intake, IV 450 1728 553 5421 Intake, Oral 550 220 500 Number 2 2 5 Bowel Movements Output, Urine 600 1300 Patient 218 lb Weight Weight Reported by Patient Measurement Method Physical Exam: General Appearance: Alert, Oriented X3, Cooperative HEENT: Atraumatic, PERRLA, EOMI Cardiovascular: Regular Rate, Normal S1, Normal S2, 2/6 systolic ejection murmur LUSB Lungs: Clear to Auscultation, Normal Air Movement Neurological: alert, oriented, no speech impairment, Strength at 5/5 X4 Ext, Sensation Intact Extremities: good pulmonary refill bilaterally, No Edema, Normal Pulses Labs/Valerio Results: Laboratory Tests 01/07 01/06 0615 2355 Chemistry Sodium (137 - 145 mmol/L) 140 Potassium (3.5 - 5.1 mmol/L) 3.3 L Chloride (98 - 107 mmol/L) 106 Carbon Dioxide (22 - 30 mmol/L) 28 Anion Gap (5 - 16) 6 BUN (7 - 17 mg/dL) 5 L Creatinine (0.5 - 1.0 mg/dL) 0.5 Estimated GFR (>60 ml/min) > 60 BUN/Creatinine Ratio (7 - 25 %) 10.0 Magnesium (1.6 - 2.3 mg/dL) 1.8 Troponin I (< 0.11 ng/ml) < 0.01 TSH (0.270 - 4.200 uIU/mL) 4.170 Hematology CBC w Diff NO MAN DIFF REQ WBC (4.8 - 10.8 /CUMM) 6.2 RBC (4.20 - 5.40 /CUMM) 3.42 L Hgb (12.0 - 16.0 G/DL) 10.4 L Hct (37 - 47 %) 31.8 L MCV (81.0 - 99.0 FL) 92.8 MCH (27.0 - 31.0 PG) 30.4 MCHC (33.0 - 37.0 G/DL) 32.8 L RDW (11.5 - 14.5 %) 14.9 H Plt Count (130 - 400 /CUMM) 269 MPV (7.4 - 10.4 FL) 8.8 Gran % (42.2 - 75.2 %) 42.2 Lymphocytes % (20.5 - 51.1 %) 38.6 Monocytes % (1.7 - 9.3 %) 14.7 H Eosinophils % (0 - 5 %) 3.7 Basophils % (0.0 - 2.0 %) 0.8 Absolute Granulocytes (1.4 - 6.5 /CUMM) 2.6 Absolute Lymphocytes (1.2 - 3.4 /CUMM) 2.4 Absolute Monocytes (0.10 - 0.60 /CUMM) 0.9 H Absolute Eosinophils (0.0 - 0.7 /CUMM) 0.2 Absolute Basophils (0.0 - 0.2 /CUMM) 0 01/06 191 1535 Chemistry Lactic Acid (0.7 - 2.1 mmol/L) 2.4 H Troponin I (< 0.11 ng/ml) < 0.01 Urines Urine Color (YEL,AMB,STR) YEL Urine Clarity (CLEAR) CLEAR Urine pH (5.0 - 8.0) 6.0 Ur Specific [place] (1.001 - 1.035) 1.015 Urine Protein (NEG,<30 MG/DL) NEG Urine Ketones (NEG) NEG Urine Nitrite (NEG) NEG Urine Bilirubin (NEG) NEG Urine Urobilinogen (0.1 - 1.0 EU/dl) 0.2 Ur Leukocyte Esterase (NEG) MOD H Ur Microscopic SEDIMENT EXAMINED Urine RBC (0 - 5 /HPF) 1-3 Urine WBC (0 - 2 /HPF) 10-15 H Ur Epithelial Cells (NONE,FEW) MOD H Urine Bacteria (NEG/NONE) MOD H Urine Hemoglobin (NEG) NEG Urine Glucose (N MG/DL) NEG 01/06 1210 Chemistry Sodium (137 - 145 mmol/L) 138 Potassium (3.5 - 5.1 mmol/L) 4.0 Chloride (98 - 107 mmol/L) 101 Carbon Dioxide (22 - 30 mmol/L) 28 Anion Gap (5 - 16) 9 BUN (7 - 17 mg/dL) 9 Creatinine (0.5 - 1.0 mg/dL) 0.7 Estimated GFR (>60 ml/min) > 60 BUN/Creatinine Ratio (7 - 25 %) 12.9 Glucose (65 - 99 mg/dL) 195 H Lactic Acid (0.7 - 2.1 mmol/L) 2.6 H Calcium (8.4 - 10.2 mg/dL) 9.2 Magnesium (1.6 - 2.3 mg/dL) 1.5 L Total Bilirubin (0.2 - 1.3 mg/dL) 0.7 AST (14 - 36 U/L) 49 H ALT (9 - 52 U/L) 53 H Alkaline Phosphatase (<127 U/L) 56 Troponin I (< 0.11 ng/ml) < 0.01 Total Protein (6.3 - 8.2 g/dL) 6.3 Albumin (3.5 - 5.0 g/dL) 3.7 Globulin (1.9 - 4.2 gm/dL) 2.6 Albumin/Globulin Ratio (1.1 - 2.2 %) 1.4 Free T4 (0.78 - 2.44 ng/dL) 1.40 Total T3 (0.97 - 1.69 ng/mL) 1.19 TSH &T3 &Free T4 Intrp (0.270 - 4.20 uIU/mL) 5.920 H Hematology CBC w Diff NO MAN DIFF REQ WBC (4.8 - 10.8 /CUMM) 7.6 RBC (4.20 - 5.40 /CUMM) 3.93 L Hgb (12.0 - 16.0 G/DL) 11.8 L Hct (37 - 47 %) 36.2 L MCV (81.0 - 99.0 FL) 92.0 MCH (27.0 - 31.0 PG) 30.1 MCHC (33.0 - 37.0 G/DL) 32.7 L RDW (11.5 - 14.5 %) 14.7 H Plt Count (130 - 400 /CUMM) 310 MPV (7.4 - 10.4 FL) 8.4 Gran % (42.2 - 75.2 %) 68.8 Lymphocytes % (20.5 - 51.1 %) 19.2 L Monocytes % (1.7 - 9.3 %) 8.1 Eosinophils % (0 - 5 %) 3.5 Basophils % (0.0 - 2.0 %) 0.4 Absolute Granulocytes (1.4 - 6.5 /CUMM) 5.2 Absolute Lymphocytes (1.2 - 3.4 /CUMM) 1.5 Absolute Monocytes (0.10 - 0.60 /CUMM) 0.6 Absolute Eosinophils (0.0 - 0.7 /CUMM) 0.3 Absolute Basophils (0.0 - 0.2 /CUMM) 0 Assessment/Plan Assessment/Plan Sinus bradycardia in the context of continued high dose labetalol use during period of dehydration. HR has recovered since admission with discontiuation of labetalol. Hypotensive shock resolved with IV fluids, but patient still vulnerable due to continued frequent loose stools. Hold labetalol for the moment. Irbesartan could be resumed tomorrow if BP remains stable. Consult Acknowledgment - Thank you for your consult request.
[2018-01-07 21:33] VITALS: BP 178/80
[2018-01-08 05:52] VITALS: BP 158/80
[2018-01-08 08:00] VITALS: BP 178/96
--- NOTE | 2018-01-08 10:45 | Patient Discharge Instructions ---
Discharge Instructions General Discharge Information You were seen/treated for: DIARRHEA Special Instructions: Please follow upw with your PCP within a week after discharge. You have an appointment with your certified credit counselor on Jan 20, please follow up. Diet Continue normal diet: Yes Activity Full Activity/No Limits: Yes Acute Coronary Syndrome Inclusion Criteria At DC or during hospital stay patient has or had the following: ACS DIAGNOSIS No Discharge Core Measures Meds if any: Prescribed or Continued at Discharge Meds if any: NOT Prescribed or Continued at Discharge Congestive Heart Failure Inclusion Criteria At DC or during hospital stay patient has or had the following: CHF DIAGNOSIS No Discharge Core Measures Meds if any: Prescribed or Continued at Discharge Meds if any: NOT Prescribed or Continued at Discharge Cerebrovascular accident Inclusion Criteria At DC or during hospital stay patient has or had the following: CVA/TIA Diagnosis No Discharge Core Measures Meds if any: Prescribed or Continued at Discharge Meds if any: NOT Prescribed or Continued at Discharge Venous thromboembolism Inclusion Criteria VTE Diagnosis No VTE Type NONE VTE Confirmed by (Test) NONE Discharge Core Measures - Per Current guidelines, there needs to be overlap - treatment for the first 5 days of Warfarin therapy. - If discharged on Warfarin prior to 5 days of - overlap therapy, the patient will need to be - assessed for post discharge needs including - *Post discharge parental anticoagulation - *Warfarin and/or parental anticoagulation education - *Follow up date to check INR post discharge At least 5 days overlap therapy as Inpatient No Meds if any: Prescribed or Continued at Discharge Note: Overlap Therapy is Warfarin and Anticoagulant Meds if any: NOT Prescribed or Continued at Discharge
--- NOTE | 2018-01-08 10:52 | PN- Att Addend ---
Attending Addendum Attending Brief Note Patient seen and examined. Reports that she feels like a new woman. No issues overnight. Diarrhea appears to have resolved. Denies any abdominal cramping. Denies any nausea vomiting. Blood pressure has improved from her hypotensive state on admission. Vital Signs Date Time Temp Pulse Resp B/P B/P Pulse O2 O2 Flow FiO2 Mean Ox Delivery Rate 01/09 0825 77 178/96 01/08 0825 77 178/96 01/08 0800 Room Air 01/08 0800 77 178/96 01/08 0552 98.2 74 18 158/80 95 Room Air 01/07 2133 98.2 84 18 178/80 93 Room Air 01/07 2049 73 174/80 08 1424 98.6 73 18 174/80 96 Laboratory Tests 01/08/18 0640: Anion Gap 6, Estimated GFR > 60, BUN/Creatinine Ratio 8.3 General appearance: Well-developed and not in any acute distress. HEENT: Anicteric, no pallor, pupils equal and reactive. Neck: Supple with no jugular venous distention. Heart: S1-S2 regular with no audible murmur. Lungs: Adequate and symmetric air entry bilaterally with no added sounds. Abdomen: Nondistended with normal bowel sounds. Soft, nontender with no palpable masses. Extremities: No pedal edema. No cyanosis. Skin: Intact Problems: 1. Hypotensive shock; resolved 2. Diarrhea; resolved 3. Hypertension Plan: -Patient medically stable to be discharged home today. -She is to follow-up with a gastroenterology appointment for colonoscopy in the next 2 weeks. -She may continue her home antihypertensive medications including diuretic therapy. -She has mild transaminitis on presentation. Denies nausea vomiting. No tenderness on exam. CT abdomen shows no evidence of acute hepatic pathology. She is status post cholecystectomy.
[2018-01-08 11:44] VITALS: BP 160/80
--- NOTE | 2018-01-08 11:59 | Discharge Summary ---
Hospital Course Allergies: Coded Allergies: Sulfa (Sulfonamide Antibiotics) (UNKNOWN 01/06/18) oxycodone (From PERCOCET) (UNKNOWN 01/06/18) Discharge Instructions Medications at Discharge Discharge Medications: Continue taking these medications: Irbesartan (Irbesartan) 150 MG TABLET 1 Tablet ORAL DAILY Qty = 90 Comments: [place]ARTAN GIVEN INSTEAD DURING HOSPITAL STAY Last Taken: 01/08/18 Time: 8:00 AM Triamterene/Hydrochlorothiazid (Triamterene-Hctz 37.5-25 MG Cp) 37.5 MG-25 MG CAPSULE 1 Capsule ORAL DAILY Qty = 90 Comments: NOT GIVEN Pravastatin Sodium (Pravastatin Sodium) 40 MG TABLET 1 Tablet ORAL DAILY Qty = 90 Comments: NOT GIVEN Labetalol HCl (Labetalol HCl) 200 MG TABLET 1 Tablet ORAL TWICE DAILY Qty = 180 Comments: Last Taken: 01/08/18 Time: 8:00 AM Potassium Chloride (Potassium Chloride) 10 MEQ TABLET.ER 1 Tablet ORAL DAILY Qty = 90 Comments: Last Taken: 01/07/18 Time: 9:00 PM Levothyroxine Sodium (Levothyroxine Sodium) 112 MCG TABLET 1 Tablet ORAL DAILY Qty = 90 Comments: Last Taken: 01/08/18 Time: 7:OO AM Tizanidine HCl (Tizanidine HCl) 4 MG TABLET 1 Tablet ORAL TWICE DAILY Qty = 60 Comments: NOT GIVEN Dicyclomine HCl (Dicyclomine HCl) 10 MG CAPSULE 1 Capsule ORAL BEFORE MEALS Qty = 90 Comments: NOT GIVEN Gabapentin (Gabapentin) 100 MG CAPSULE 3 Capsule ORAL THREE TIMES DAILY Qty = 90 Comments: NOT GIVEN
--- NOTE | 2018-01-08 15:24 | PN- Housestaff ---
Subjective Follow-up For: diarrhea Subjective: Pt seen and examined this am, she reports feeling well. Tolerating PO well, ambulating with walker. States no episodes of diarrhea, N/V, abdominal pain or bloody stools. LE weakness is now resolved. She offers no other acute complains. No telemetry events noted. Review of Systems Constitutional: Reports: no symptoms. EENTM: Reports: no symptoms. Cardiovascular: Reports: no symptoms. Respiratory: Reports: no symptoms. Gastrointestinal: Reports: see HPI. Genitourinary: Reports: no symptoms. Musculoskeletal: Reports: no symptoms. Objective Last 24 Hrs of Vital Signs/I&O Vital Signs Date Time Temp Pulse Resp B/P B/P Pulse O2 O2 Flow FiO2 Mean Ox Delivery Rate 01/08 1144 71 160/80 01/08 0825 77 178/96 01/08 0825 77 178/96 01/08 0800 Room Air 01/08 0800 77 178/96 01/08 0552 98.2 74 18 158/80 95 Room Air 01/07 2133 98.2 84 18 178/80 93 Room Air 01/07 2049 73 174/80 Intake & Output 01/08 1600 01/08 0800 01/08 0000 Intake Total 200 400 Output Total 500 Balance -300 400 Intake, Oral 200 400 Output, Urine 500 Patient 227 lb 220 lb Weight Weight Bed scale Bed scale Measurement Method Physical Exam General Appearance: Alert, Oriented X3, Cooperative, No Acute Distress HEENT: Atraumatic, Mucous Membr. moist/pink Neck: Supple Cardiovascular: Regular Rate, Normal S1, Normal S2, No Murmurs Lungs: Clear to Auscultation, Normal Air Movement Abdomen: Normal Bowel Sounds, Soft, No Tenderness, No Hepatospenomegaly Neurological: Normal Speech Extremities: No Clubbing, No Cyanosis, No Edema Current Medications: Current Medications Sig/Kaitlyn Start time Last Medication Dose Route Stop Time Status Admin Acetaminophen 650 MG ONCE ONE 01/08 1200 DC 01/08 PO 01/08 1201 1200 Acetaminophen 0 .STK-MED ONE 01/08 1155 DC PO Heparin Sodium 5,000 UNIT Q8 01/06 2256 AC 01/08 (Porcine) SC 0630 Labetalol HCl 200 MG BID 01/07 0900 AC 01/08 PO 0825 Levothyroxine Sodium 0.112 MG DAILY AC 01/07 0700 AC 01/08 PO 0626 Loperamide HCl 2 MG Q6P PRN 01/07 1415 AC PO Losartan Potassium 50 MG DAILY 01/07 900 AC 01/08 PO 08 Magnesium Oxide 400 MG BID 01/07 900 AC 01/08 PO 08 Potassium Chloride 40 MEQ BID 01/07 900 DC 01/07 PO 01/07 Tramadol HCl 50 MG Q4 PRN 01/07 1159 AC 01/07 PO 2052 Last 24 Hrs of Lab/Valerio Results Last 24 Hrs of Labs/Mics: Laboratory Tests 01/08/18 0640: Anion Gap 6, Estimated GFR > 60, BUN/Creatinine Ratio 8.3, Total Bilirubin 0.4, Direct Bilirubin 0.1, AST 41 H, ALT 49, Alkaline Phosphatase 63, Total Protein 6.5, Albumin 3.8 Assessment/Plan Assessment: 72 y/o F with PMH of HTN, HLD, hypothyroidism, rheumatoid arthritis, and ankylosing spondylitis who presented to the ED c/o diarrhea, nausea and vomiting since December 17, along with weakness of her LE B/L. ASSESSMENT #Diarrhea of unclear etiology #Hypotensive shock 2/2 severe dehydration, resolved #LE weakness, resolvwed #History of Ankylosing Spondylitis #History of hypertension #Hypotensive shock 2/2 severe dehydration now resolved: etiology- Patient c/o diarrhea for 2 weeks with decreased po intake. She was also treated with ABx for colitis, which could have contributed to her status. Patient was hypotensive on admission with SBP of 62/00, which increased to 130/72 after 1.5L of NS in ED. Lactic acid was elevated on admission at 2.6, that trended down 2.4. She is now hemodynamically stable. - off fluids, tolerating po well #Diarrhea, resolved: cause unclear, patient had a recent episode of colitis which was treated with Abx, also onsulfasalazine for Anykylosing spondylitis which could all be contributing to her diarrhea. C diff was negative. CT abd/ pelvi does not show any evidence of acute abnormality within the abdomen or pelvis, no colitis seen. -hold Sulfasalazine #Bilateral LE weakness, resolved: Patient has history of back surgery for disk herniation. Could have been realted to her hemodynamic status -Patient stated that her weakness symptoms did improve after drinking pedialyte. Electrolytes derangements have been corrected. She ambulated on the walker with assistance this am. -monitor electrolytes -increase PO intake, rehydrate patient #Ankylosing Spondylitis: Patient was started on Sulfasalazine approx 5 years ago and having a bone infection at the site of Embril Injection -hold sulfasalazine as medication is known to induce diarrhea -tylenol for pain #History of hypertension: Initially patient was hypotensive on presentation secondary to dehydration. After resolution, her BP crept up to >160/90, her home medication have been restarted. -continue labetalol, losartan #History of hypothyroidism: Repeat TSH is 4.170, TSH on admit was 5.9 Diet: Heart Healthy DVT PPx: Heparin and ALPS Code Status: Full code Problem List: 1. Hypotension Pain Ratin Pain Location: n/a Pain Goal: Pain 4 or less Pain Plan: tramadol Tomorrow's Labs & Rationales: .
== END 2018-01-08 15:05 | DRG 640 ==
LOC: ERH 11:56 → 1NO 15:12 → ERHI 15:12 → ENRESERV 15:58 → ENTRNSPT 16:37 → 1NO 16:50 → EDTRNSPT 17:03 → EDTRNSPTSTS 17:03 → CMPTRNSPT 17:13 → 1NO 22:57 → ENPENDDIS 01-08 11:08 → ENTRNSPT 01-08 13:58 → EDTRNSPT 01-08 14:40 → EDTRNSPTSTS 01-08 14:47 → CMPTRNSPT 01-08 15:05 → 1NO 01-08 15:05 → CMPTRNSPT 01-08 15:12
PROVIDERS: Internal Medicine Adolescent Medicine; Student in an Organized Health Care Education/Training Program
DX: E86.0 Dehydration (principal); R57.0 Cardiogenic shock; E87.2 Acidosis; E86.9 Volume depletion, unspecified; I10 Essential (primary) hypertension; E03.9 Hypothyroidism, unspecified; R00.1 Bradycardia, unspecified; T46.4X5A Adverse effect of angiotensin-converting-enzyme inhibitors, initial encounter; E78.5 Hyperlipidemia, unspecified; M06.9 Rheumatoid arthritis, unspecified; M45.9 Ankylosing spondylitis of unspecified sites in spine; Z96.642 Presence of left artificial hip joint; Z88.5 Allergy status to narcotic agent; Z88.2 Allergy status to sulfonamides; Z98.1 Arthrodesis status; Z87.891 Personal history of nicotine dependence; R19.7 Diarrhea, unspecified; Z96.653 Presence of artificial knee joint, bilateral
CPT/HCPCS: 1NP; 36592; 71045; 74177; 81001; 82436; 87015; 87040; 87045; 87328; 87329; 87899; 87899-59; 93005; 93010; 97116-GO; 97161-GP; 97530-GO; J1644